=== PATIENT | female | born 1970 | race Hispanic/Latino ===

== ENCOUNTER 2017-07-27 14:15 | Emergency (ER) | payer BC ==
[~2017-07-27] VITALS: Ht 165.1 cm; Wt 71.0 kg
[~2017-07-27 14:15] MED LIST: [UNRECOGNIZED DRUG - OTHER] PO
[2017-07-27 16:05] LABS: HEMATOCRIT 36.2 % (37.0-47.0); HEMOGLOBIN 12.9 g/dl (12.0-16.0); IMMATURE GRANULOCYTES 0.4 % (0.0-1.0); MEAN CELL VOLUME 90.5 fL CALC (80.0-100.0); MEAN CORPUSCULAR HGB 32.3 pG CALC (26.0-32.0); MEAN CORPUSCULAR HGB CONC 35.6 g/L CALC (32.0-36.0); NEUT# 6.9 thou/uL (2.00-7.15); RED CELL DISTRI WIDTH 11.7 % (11.5-15.5)
[2017-07-27 16:08] LABS: ALBUMIN 4.8 g/dL (3.2-5.0); ALKALINE PHOSPHATASE 81 u/l (38-126); ANION GAP 17 (6-22 (CALC)); BILIRUBIN, TOTAL 0.5 mg/dL (0.0-1.4); BUN 13 mg/dL (7-17); BUN/CREATININE RATIO 18 (12-20 (CALC)); CALCIUM 9.7 mg/dL (8.4-10.2); CARBON DIOXIDE 25 mmol/l (22-30); CHLORIDE 102 mmol/l (95-108); CREATININE 0.7 mg/dL (0.5-1.0); GFR > 60 ML/MIN (>=60 (CALC)); GFR FOR AFR.AMER. > 60 ML/MIN (>=60 (CALC)); GLUCOSE 131 mg/dL (65-105); POTASSIUM 3.5 mmol/l (3.5-5.1); SGOT/AST 22 u/l (14-36); SGPT/ALT 34 u/l (9-52); SODIUM 140 mmol/l (137-146); TOTAL PROTEIN 7.5 g/dL (6.3-8.2)
[2017-07-27 17:39] VITALS: BP 110/69
== END 2017-07-27 17:52 | disposition home or self-care (01) | DRG 103 ==
LOC: ED 14:15
PROVIDERS: Emergency Medicine
DX: R51 Headache (principal); R11.2 Nausea with vomiting, unspecified; R53.1 Weakness

== ENCOUNTER 2019-05-07 08:07 | Emergency (ER) | payer BC ==
[~2019-05-07] VITALS: Ht 165.1 cm; Wt 75.0 kg
[2019-05-07] MEDS ORDERED: ULTRAM50 M1 PO (10:47)
[2019-05-07] MEDS ORDERED: AMOXICILLIN500 MG PO (10:47)
[2019-05-07 10:53] VITALS: BP 124/70
== END 2019-05-07 10:58 | disposition home or self-care (01) | DRG 605 ==
LOC: ED 08:07
PROC: 0HQGXZZ Repair Left Hand Skin, External Approach (ICD-10-PCS; principal; 2019-05-07)
DX: S61.112A Laceration without foreign body of left thumb with damage to nail, initial encounter (principal); S61.412A Laceration without foreign body of left hand, initial encounter; J02.0 Streptococcal pharyngitis; W29.0XXA Contact with powered kitchen appliance, initial encounter; Y93.G1 Activity, food preparation and clean up; Y92.000 Kitchen of unspecified non-institutional (private) residence as the place of occurrence of the external cause

== ENCOUNTER 2019-05-08 10:03 | Emergency (ER) | payer BC ==
[~2019-05-08 10:03] MED LIST changes: +AMOXICILLIN500 MG PO; +ULTRAM50 M1 PO
== END 2019-05-08 10:09 | disposition left against medical advice (07) | DRG 951 ==
LOC: ED 10:03 → LWOBS 10:09
DX: Z91.19 Patient's noncompliance with other medical treatment and regimen (principal)